=== PATIENT | female | born 1975 | race Caucasian/White ===

== ENCOUNTER 2021-02-10 03:04 | Inpatient (IN) | payer BC ==
--- NOTE | 2021-02-10 03:24 | ED ---
Fever HPI - General Chief Complaint: Fever Stated Complaint: Covid+ Time Seen by Provider: 02/10/21 03:23 Source: patient, RN notes reviewed, old records reviewed Mode of arrival: ambulatory Limitations: no limitations - History of Present Illness Initial Comments: This is a 38-year-old female who presents. Patient presents today for evaluation of known coronavirus exposure does think she has coronavirus based on symptoms diffuse body aches chest pain shortness of breath weakness fever sweating. Patient continues to feel worse here in the emergency department patient states that she is on covert for 7 days MD Complaint: fever, malaise, weakness -: days(s) Temperature Source: subjective Context: multiple patients with similar symptoms Associated Symptoms: chills, rigors, myalgias, nasal congestion, sore throat, cough, shortness of breath, nausea Treatments Prior to Arrival: none - Related Data Allergies Allergy/AdvReac Type Severity Reaction Status Date / Time No Known Allergies Allergy Verified 02/10/21 03:11 Review of Systems ROS Statement: Those systems with pertinent positive or pertinent negative responses have been documented in the HPI. ROS Other: All systems not noted in ROS Statement are negative. Past Medical History Past Medical History: No Reported History History of Any Multi-Drug Resistant Organisms: None Reported Past Surgical History: No Surgical Hx Reported Past Psychological History: Depression Smoking Status: Never smoker Past Alcohol Use History: None Reported Past Drug Use History: None Reported General Exam Limitations: no limitations General appearance: alert, in no apparent distress Head exam: Present: atraumatic, normocephalic, normal inspection Eye exam: Present: normal appearance, PERRL, EOMI. Absent: scleral icterus, conjunctival injection, periorbital swelling ENT exam: Present: normal exam, mucous membranes moist Neck exam: Present: normal inspection. Absent: tenderness, meningismus, lymphadenopathy Respiratory exam: Present: normal lung sounds bilaterally. Absent: respiratory distress, wheezes, rales, rhonchi, stridor Cardiovascular Exam: Present: regular rate, normal rhythm, normal heart sounds. Absent: systolic murmur, diastolic murmur, rubs, gallop, clicks GI/Abdominal exam: Present: soft, normal bowel sounds. Absent: distended, tenderness, guarding, rebound, rigid Extremities exam: Present: normal inspection, full ROM, normal capillary refill. Absent: tenderness, pedal edema, joint swelling, calf tenderness Back exam: Present: normal inspection Neurological exam: Present: alert, oriented X3, CN II-XII intact Psychiatric exam: Present: normal affect, normal mood Skin exam: Present: warm, dry, intact, normal color. Absent: rash Course Vital Signs 02/10/21 02/10/21 02/10/21 03:05 03:55 05:33 Temperature 100.9 F H Pulse Rate 75 68 Respiratory 20 24 18 Rate Blood Pressure 124/85 O2 Sat by Pulse 93 L 94 L Oximetry 02/10/21 06:00 Temperature 98.7 F Pulse Rate 71 Respiratory 18 Rate Blood Pressure 126/76 O2 Sat by Pulse 96 Oximetry - Reevaluation(s) Reevaluation #1: 02/10/21 07:11 Medical record is reviewed Reevaluation #2: 02/10/21 07:11 Patient symptoms are improved 02/10/21 07:12 Patient will be given antibiotic treatment Reevaluation #3: 02/10/21 07:12 Exertion outpatient significant shortness of breath and will need to be admitted Medical Decision Making - Medical Decision Making 36 female to the emergency department for evaluation of coronavirus. Patient is positive for pneumonia fever will admit for symptom control and monitoring of oxygen as she did drop her oxygen to the 80s with exertion - Lab Data Result diagrams: 02/10/21 03:49 02/10/21 03:49 Lab Results 02/10/21 02/10/21 02/10/21 Range/Units 03:11 03:49 03:49 WBC 7.3 (3.8-10.6) k/uL RBC 4.58 (3.80-5.40) m/uL Hgb 14.4 (11.4-16.0) gm/dL Hct 43.4 (34.0-46.0) % MCV 94.7 (80.0-100.0) fL MCH 31.5 (25.0-35.0) pg MCHC 33.2 (31.0-37.0) g/dL RDW 13.8 (11.5-15.5) % Plt Count 169 (150-450) k/uL MPV 7.6 Neutrophils % 75 % Lymphocytes % 22 % Monocytes % 2 % Eosinophils % 0 % Basophils % 0 % Neutrophils # 5.4 (1.3-7.7) k/uL Lymphocytes # 1.6 (1.0-4.8) k/uL Monocytes # 0.2 (0-1.0) k/uL Eosinophils # 0.0 (0-0.7) k/uL Basophils # 0.0 (0-0.2) k/uL Sodium 132 L (137-145) mmol/L Potassium 4.8 (3.5-5.1) mmol/L Chloride 100 (98-107) mmol/L Carbon Dioxide 23 (22-30) mmol/L Anion Gap 9 mmol/L BUN 23 H (7-17) mg/dL Creatinine 0.96 (0.52-1.04) mg/dL Est GFR (CKD-EPI)AfAm 81 (>60 ml/min/1.73 sqM) Est GFR (CKD-EPI)NonAf 70 (>60 ml/min/1.73 sqM) Glucose 166 H (74-99) mg/dL Calcium 9.4 (8.4-10.2) mg/dL Magnesium 2.0 (1.6-2.3) mg/dL Total Bilirubin 0.6 (0.2-1.3) mg/dL AST 43 H (14-36) U/L ALT 41 H (4-34) U/L Alkaline Phosphatase 82 (38-126) U/L Lactate Dehydrogenase 814 H (313-618) U/L C-Reactive Protein 8.5 H (<1.0) mg/dL Total Protein 7.4 (6.3-8.2) g/dL Albumin 4.0 (3.5-5.0) g/dL Coronavirus (PCR) Detected A (Not Detectd) - Radiology Data Radiology results: report reviewed (Chest x-rays positive for coronavirus with pneumonia), image reviewed Disposition Clinical Impression: Coronavirus infection, COVID-19, Pneumonia due to COVID-19 virus, Fever, Hypoxia Disposition: ADMITTED IP TO THIS HOSP Condition: Fair Is patient prescribed a controlled substance at d/c from ED?: No
[2021-02-10] MEDS ORDERED: DEXAMETHASONE SOD PHOSPHATE 10 MG/ML 1 ML VIAL IVP STA (03:27)
[2021-02-10] MEDS ORDERED: SODIUM CHLORIDE 0.9% 1,000 ML IV STA (03:27)
[2021-02-10] MEDS ORDERED: KETOROLAC 15 MG/ML 1 ML VIAL IVP STA (03:27)
[2021-02-10] MEDS ORDERED: ACETAMINOPHEN TAB 500 MG TAB PO STA (03:27)
[2021-02-10] MEDS ORDERED: ALBUTEROL HFA INHALER INHALATION STA (03:27)
[2021-02-10 03:59] LABS: Basophils % (A) 0 %; Eosinophils % (A) 0 %; HCT 43.4 % (34.0-46.0); HGB 14.4 gm/dL (11.4-16.0); Lymphocytes # (A) 1.6 k/uL (1.0-4.8); Lymphocytes % (A) 22 %; MCH 31.5 pg (25.0-35.0); MCHC 33.2 g/dL (31.0-37.0); MCV 94.7 fL (80.0-100.0); Mean Platelet Volume 7.6; Monocytes # (A) 0.2 k/uL (0-1.0); Monocytes % (A) 2 %; Neutrophils # (A) 5.4 k/uL (1.3-7.7); Neutrophils % (A) 75 %; Platelet Count 169 k/uL (150-450); RBC 4.58 m/uL (3.80-5.40); RDW 13.8 % (11.5-15.5); WBC 7.3 k/uL (3.8-10.6)
--- NOTE | 2021-02-10 04:11 | XR ---
EXAMINATION TYPE: XR chest 1V portable DATE OF EXAM: 02/10/2021 COMPARISON: NONE HISTORY: Short of breath TECHNIQUE: Single view FINDINGS: there is bilateral patchy pulmonary edema. This appears more on the right side. Heart is borderline e nlarged. There is no definite pleural effusion. Bony thorax is intact. There is no pneumothorax. IMPRESSION: Patchy pulmonary edema could relate to acute pneumonia or acute heart failure.
[2021-02-10 04:23] LABS: C Reactive Protein 8.5 mg/dL (<1.0); Calcium 9.4 mg/dL (8.4-10.2); Potassium 4.8 mmol/L (3.5-5.1); Total Bilirubin 0.6 mg/dL (0.2-1.3); Total Protein 7.4 g/dL (6.3-8.2)
[2021-02-10] MEDS ORDERED: SODIUM CHLORIDE 0.9% 50 ML IVPB ONE (04:30)
[2021-02-10] MEDS ORDERED: BAMLANIVIMAB (EUA) 700 MG, ETESEVIMAB (EUA) 1,400 MG in SODIUM CHLORIDE 0.9% 100 ML IVPB ONE (04:30)
[2021-02-10] MEDS ORDERED: MORPHINE SULFATE 4 MG/ML SYRINGE IV PRN (05:27)
[2021-02-10] MEDS ORDERED: NALOXONE 0.4 MG/ML 1 ML VIAL IV PRN (05:27)
[2021-02-10] MEDS ORDERED: ONDANSETRON 4 MG/2 ML VIAL IVP PRN (05:27)
[2021-02-10] MEDS ORDERED: IBUPROFEN 400 MG TAB PO PRN (05:27)
[2021-02-10] MEDS: SODIUM CHLORIDE 0.9% 1,000 ML IV SCH ×3 (05:56→20:26)
[2021-02-10] MEDS: DEXAMETHASONE SOD PHOSPHATE 10 MG/ML 1 ML VIAL IVP SCH (07:31)
[2021-02-10] MEDS: ENOXAPARIN 40 MG/0.4 ML SYRINGE SQ SCH (07:32)
[2021-02-10] MEDS ORDERED: REMDESIVIR 200 MG in SODIUM CHLORIDE 0.9% 250 ML IVPB ONE (09:00)
[2021-02-10] MEDS: CHOLECALCIFEROL 25 MCG (1000 IU) TABLET PO SCH (12:29)
[2021-02-10] MEDS: ASCORBIC ACID 500 MG TAB PO SCH (12:29)
[2021-02-10] MEDS: ZINC SULFATE 220 MG CAP PO SCH (12:29)
[2021-02-10] MEDS: ACETAMINOPHEN TAB 325 MG TAB PO PRN ×2 (14:18→20:27)
--- NOTE | 2021-02-10 16:49 | P.CNPUL ---
History of Present Illness Consult date: 02/10/21 Requesting physician: Fortino Ludwig Reason for consult: dyspnea, hypoxemia, abnormal CXR/CT Chief complaint: Shortness of breath, sore throat, fever History of present illness: This is a pleasant 46-year-old female patient with a known history of morbid obesity and depression. She has a 7 day history of shortness of breath, cough, congestion, sore throat, headache, backache and fevers. She's had nausea, vomiting. Loss of taste and smell. She resented here to the emergency room early this morning for the same. She did test positive for sky virus by PCR. She is not vaccinated. His x-ray reveals patchy bilateral infiltrates consistent with CoVID pneumonia. White count 7.3. Hemoglobin 14.4. Lymphocytes 22. Sodium 132. Potassium 4.8. Creatinine 0.96. Glucose 166. AST 43. ALT 41. LDH 814. C-reactive protein 8.5. She is initiated on Decadron, Lovenox, vitamin supplements. Review of Systems REVIEW OF SYSTEMS: CONSTITUTIONAL: Positive for fever Denies any recent significant weight loss or weight gain. EYES: Denies change in vision. EARS, NOSE, MOUTH, THROAT: Positive for headaches, sore throat. CARDIOVASCULAR: Denies chest pain, palpitations or syncopal episodes. RESPIRATORY: Positive for shortness of breath, cough, congestion no hemoptysis. GASTROINTESTINAL: Denies change in appetite, denies abdominal pain GENITOURINARY: Denies hematuria, denies infections. MUSKULOSKELETAL: Denies pain, denies swelling. INTEGUMENTARY: Denies rash, denies eczema. NEUROLOGICAL: Denies recent memory loss, no recent seizure activity. PSYCHIATRIC: Denies anxiety, denies depression. HEMATOLOGIC/LYMPHATIC: Denies anemia, denies enlarged lymph nodes. Past Medical History Past Medical History: No Reported History Additional Past Medical History / Comment(s): Recent lower tooth extrac tion/infection, UTIs. History of Any Multi-Drug Resistant Organisms: None Reported Past Surgical History: No Surgical Hx Reported Additional Past Surgical History / Comment(s): [place] teeth extractions Past Anesthesia/Blood Transfusion Reactions: No Reported Reaction Smoking Status: Never smoker - Past Family History Mother Family Medical History: Diabetes Mellitus, Hypertension Additional Family Medical History / Comment(s): Mother is living Father Family Medical History: Diabetes Mellitus, Hypertension, Myocardial Infarction ([place]) Additional Family Medical History / Comment(s): Father had a mi at the age of 65yrs. Medications and Allergies Home Medications Medication Instructions Recorded Confirmed Type Citalopram Hydrobromide [CeleXA] 40 mg PO HS 02/10/21 02/10/21 History HYDROcodone/APAP 5-325MG [[place] 1 tab PO Q6H PRN 02/10/21 02/10/21 History 5-325] Ibuprofen [Motrin] 800 mg PO TID PRN 02/10/21 02/10/21 History [place] Carbonate 1,200 mg PO HS 02/10/21 02/10/21 History [place] Carbonate 300 mg PO DAILY 02/10/21 02/10/21 History guaiFENesin-DM 100-10MG/5ML 10 ml PO Q6H PRN 02/10/21 02/10/21 History [Robitussin DM] Allergies Allergy/AdvReac Type Severity Reaction Status Date / Time No Known Allergies Allergy Verified 02/10/21 07:38 Physical Exam Vitals: Vital Signs Temp Pulse Pulse Resp BP BP Pulse Ox 02/10/21 14:14 99.4 F 76 18 155/86 95 02/10/21 10:30 98.7 F 80 20 150/99 95 02/10/21 07:39 18 02/10/21 07:38 18 02/10/21 06:00 98.7 F 71 18 126/76 96 02/10/21 05:33 68 18 94 L 02/10/21 03:55 24 02/10/21 03:05 100.9 F H 75 20 124/85 93 L Intake and Output 02/10/21 02/10/21 02/10/21 06:59 14:59 22:59 Other: # Voids 1 Weight 109.724 kg 109.724 kg GENERAL EXAM: Alert, pleasant 46-year-old female patient, obese, on 2 L nasal cannula, fairly comfortable in no apparent distress. HEAD: Normocephalic. EYES: Normal reaction of pupils, equal size. NOSE: Clear with pink turbinates. THROAT: No erythema or exudates. NECK: No masses, no JVD. CHEST: No chest wall deformity. LUNGS: Equal air entry with bibasilar crackles. CVS: S1 and S2 normal with no audible murmur, regular rhythm. ABDOMEN: No hepatosplenomegaly, normal bowel sounds, no guarding or rigidity. SPINE: No scoliosis or deformity SKIN: No rashes CENTRAL NERVOUS SYSTEM: No focal deficits, tone is normal in all 4 extremities. EXTREMITIES: There is no peripheral edema. No clubbing, no cyanosis. Peripheral pulses are intact. Results - Laboratory Findings CBC and BMP: 02/10/21 03:49 02/10/21 03:49 Abnormal lab findings: Abnormal Labs 02/10/21 02/10/21 03:11 03:49 Sodium 132 L BUN 23 H Glucose 166 H AST 43 H ALT 41 H Lactate Dehydrogenase 814 H C-Reactive Protein 8.5 H Coronavirus (PCR) Detected A - Diagnostic Findings Chest x-ray: image reviewed Assessment and Plan Assessment: 1 Acute hypoxemic respiratory failure secondary to COVID-19 pneumonia. Not vaccinated. Symptoms started approximately 7 days ago. Will be started on Remdesivir today 02/10/2021. New 2 Febrile illness secondary to above 3 Elevated inflammatory markers secondary to above 4 History of depression 5 Obesity with a BMI 46 kg per metered square Plan: The patient was seen and evaluated by Dr. Cedeno X-ray and labs reviewed Check a d-dimer Check a pro-calcitonin Check a BNP We will initiate Remdesivir Continue Lovenox, Decadron, vitamin supplements Titrate the FiO2 as tolerated We will continue to follow and make further recommendations based on her clinical status I, the cosigning physician, performed a history & physical examination of the patient. Lungs sounds with crackles in the bilateral bases. Maintaining good O2 saturations in the 90s on 2 L/m per nasal cannula. I discussed the assessment and plan of care with my nurse practitioner, Rosie Isaac. I attest to the above consultation as dictated by her. Time with Patient: Greater than 30
--- NOTE | 2021-02-10 23:25 | P.HPIM ---
History of Present Illness H&P Date: 02/10/21 Chief Complaint: Shortness of Breath Patient is a 46-year-old female with a known history of anxiety/depression and morbid obesity with a BMI 45.7 presents to ER with complaints of cough congestion, sore throat and fever for the past 7 days. She does have nausea and loss of taste and smell. No complaints of chest pain. No diarrhea. On admission patient was febrile with T-max 100.9 and saturating at 93% on 2 L oxygen via nasal cannula. Laboratory data showed WBC 7.3 hemoglobin 14.4 and platelets 169 lymphocytes 1.6 Sodium 132 potassium 4.8 chloride 100 BUN 23 and creatinine 0.96 AST 43 ALT 41 alk phos 82 LDH 814 and CRP 8.5 COVID-19 PCR detected. Chest x-ray showed patchy pulmonary edema could relate to acute pneumonia or acute heart failure. Review of Systems Constitutional: Patient does have fever and generalized weakness.. Abdomen: Patient does have nausea and episodes of vomiting and no abdominal pain or diarrhea. Cardiovascular: Patient denies any chest pain . + short of breath no palpitations. Respiratory: Does have cough congestion and shortness of breath. Neurologic: Patient denied any numbness or tingling headache. Musculoskeletal: Patient denies any complaints of joint swelling or deformity. Skin: Negative Psychiatric: Negative Endocrine: No heat or cold intolerance. No recent weight gain. Genitourinary: No dysuria or hematuria. All other 14 point ROS negative except the above Past Medical History Past Medical History: No Reported History Additional Past Medical History / Comment(s): Recent lower tooth extraction/in fection, UTIs. History of Any Multi-Drug Resistant Organisms: None Reported Past Surgical History: No Surgical Hx Reported Additional Past Surgical History / Comment(s): [place] teeth extractions Past Anesthesia/Blood Transfusion Reactions: No Reported Reaction Smoking Status: Never smoker - Past Family History Mother Family Medical History: Diabetes Mellitus, Hypertension Additional Family Medical History / Comment(s): Mother is living Father Family Medical History: Diabetes Mellitus, Hypertension, Myocardial Infarction ([place]) Additional Family Medical History / Comment(s): Father had a mi at the age of 65yrs. Medications and Allergies Home Medications Medication Instructions Recorded Confirmed Type Citalopram Hydrobromide [CeleXA] 40 mg PO HS 02/10/21 02/10/21 History HYDROcodone/APAP 5-325MG [[place] 1 tab PO Q6H PRN 02/10/21 02/10/21 History 5-325] Ibuprofen [Motrin] 800 mg PO TID PRN 02/10/21 02/10/21 History [place] Carbonate 1,200 mg PO HS 02/10/21 02/10/21 History [place] Carbonate 300 mg PO DAILY 02/10/21 02/10/21 History guaiFENesin-DM 100-10MG/5ML 10 ml PO Q6H PRN 02/10/21 02/10/21 History [Robitussin DM] Allergies Allergy/AdvReac Type Severity Reaction Status Date / Time No Known Allergies Allergy Verified 02/10/21 07:38 Physical Exam Vitals: Vital Signs Temp Pulse Pulse Resp BP BP Pulse Ox 02/10/21 10:30 98.7 F 80 20 150/99 95 02/10/21 07:39 18 02/10/21 07:38 18 02/10/21 06:00 98.7 F 71 18 126/76 96 02/10/21 05:33 68 18 94 L 02/10/21 03:55 24 02/10/21 03:05 100.9 F H 75 20 124/85 93 L Intake and Output 02/09/21 02/10/21 02/10/21 22:59 06:59 14:59 Other: # Voids 1 Weight 109.724 kg 109.724 kg PHYSICAL EXAMINATION: Patient is lying in the bed comfortably, no acute distress, awake alert and oriented.. HEENT: Normocephalic. Neck is supple. Pupils reactive. Nostrils clear. Oral cavity is moist. Neck reveals no JVD, carotid bruits, or thyromegaly. CHEST EXAMINATION: Trachea is central. Symmetrical expansion. Lung childress clear to auscultation and percussion. CARDIAC: Normal S1, S2 with no gallops. No murmurs ABDOMEN: Soft. Bowel sounds normal. No organomegaly. No abdominal bruits. Extremities: reveal no edema. No clubbing or cyanosis Neurologically awake, alert, oriented x3 with well-coordinated movements. No focal deficits noted Skin: No rash or skin lesions. Psychiatric: Cooperative. Nonsuicidal Musculoskeletal: No joint swelling or deformity. Normal range of motion. Results CBC & Chem 7: 02/10/21 03:49 02/10/21 03:49 Labs: Abnormal Lab Results - Last 24 Hours (Table) 02/10/21 02/10/21 Range/Units 03:11 03:49 Sodium 132 L (137-145) mmol/L BUN 23 H (7-17) mg/dL Glucose 166 H (74-99) mg/dL AST 43 H (14-36) U/L ALT 41 H (4-34) U/L Lactate Dehydrogenase 814 H (313-618) U/L C-Reactive Protein 8.5 H (<1.0) mg/dL Coronavirus (PCR) Detected A (Not Detectd) Thrombosis Risk Factor Assmnt - DVT/VTE Prophylaxis DVT/VTE Prophylaxis: Pharmacologic Prophylaxis ordered - Choose All That Apply Any of the Below Risk Factors Present?: Yes Each Factor Represents 1 point: Age 41-60 years, Obesity (BMI >25), Serious lung disease incl. pneumonia (< 1month) Other Risk Factors: No Other congenital or acquired thrombophilia - If yes, enter type in comment: No Thrombosis Risk Factor Assessment Total Risk Factor Score: 3 Thrombosis Risk Factor Assessment Level: Moderate Risk Assessment and Plan Assessment: Acute hypoxic respiratory failure secondary to COVID-19 pneumonia. Patient has been having symptoms for the past 7 days. Elevated inflammatory markers secondary to above Anxiety/depression Morbid obesity BMI 45.7 DVT prophylaxis with Lovenox subcu Plan: Patient will be continued on oxygen supplementation and continue with the dexamethasone, Lovenox and vitamin supplementation. Titrate down FiO2 as tolerated. Continue with symptomatic management for nausea and vomiting. Follow-up CBC BMP and inflammatory markers. Patient was seen by pulmonary and initiated on remdesivir course. Patient was given monoclonal antibody therapy in the ER. Continue to follow closely. Time with Patient: Greater than 30
[2021-02-11] MEDS ORDERED: LORazepam 0.5 MG TAB PO PRN (01:00)
[2021-02-11] MEDS ORDERED: LITHIUM CARBONATE 300 MG CAP PO SCH ×2 (01:00→09:00)
[2021-02-11] MEDS: SODIUM CHLORIDE 0.9% 1,000 ML IV SCH ×2 (05:56→10:11)
[2021-02-11] MEDS: ENOXAPARIN 40 MG/0.4 ML SYRINGE SQ SCH (07:52)
[2021-02-11] MEDS: ASCORBIC ACID 500 MG TAB PO SCH (07:53)
[2021-02-11] MEDS: CHOLECALCIFEROL 25 MCG (1000 IU) TABLET PO SCH (07:53)
[2021-02-11] MEDS: ZINC SULFATE 220 MG CAP PO SCH (07:53)
[2021-02-11] MEDS: DEXAMETHASONE SOD PHOSPHATE 10 MG/ML 1 ML VIAL IVP SCH (07:53)
--- NOTE | 2021-02-11 08:00 | XR ---
EXAMINATION TYPE: XR chest 1V DATE OF EXAM: 02/11/2021 COMPARISON: 02/10/2021 HISTORY: Chest pain TECHNIQUE: Single frontal view of the chest is obtained. FINDINGS: Persistent patchy perihilar and right basilar infiltrate persists without significant change. The cardiac silhouette size is within normal limits. The osseous structures are intact. IMPRESSION: 1. Persistent patchy perihilar and right basilar infiltrate persists without significant change.
[2021-02-11] MEDS ORDERED: REMDESIVIR 100 MG in SODIUM CHLORIDE 0.9% 250 ML IVPB SCH (09:00)
[2021-02-11 10:56] VITALS: RESP 16
[2021-02-11 11:04] LABS: African American GFR (CKD) 94.7 (60.0-200.0); Albumin 3.6 g/dL (3.8-4.9); Albumin/Globulin Ratio 1.34 (1.60-3.17); BUN/Creat Ratio 15.05 Ratio (12.00-20.00); Blood Urea Nitrogen 12.7 mg/dL (9.0-27.0); C Reactive Protein 11.7 mg/dL (0.00-0.80); Calcium 8.6 mg/dL (8.7-10.3); Carbon Dioxide 23.3 mmol/L (20.0-27.5); Globulin 2.7 g/dL (1.6-3.3); Non-African American GFR(CKD) 81.7 (60.0-200.0); Potassium 4.3 mmol/L (3.5-5.5); Total Bilirubin 0.4 mg/dL (0.30-1.20); Total Protein 6.3 g/dL (6.2-8.2)
[2021-02-11 11:28] LABS: Basophils # (A) 0.01 X 10*3/uL (0.00-0.10); Basophils % (A) 0.1 %; Eosinophils # (A) 0 X 10*3/uL (0.04-0.35); Eosinophils % (A) 0 %; HCT 38.3 % (37.2-46.3); HGB 12.7 g/dL (12.0-15.0); Lymphocytes # (A) 1.94 X 10*3/uL (0.90-5.00); Lymphocytes % (A) 25.6 %; MCHC 33.2 g/dL (32.0-37.0); MCV 93.4 fL (80.0-97.0); Mean Platelet Volume 9.8 fL (9.5-12.2); Monocytes # (A) 0.28 X 10*3/uL (0.20-1.00); Monocytes % (A) 3.7 %; Neutrophils # (A) 5.25 X 10*3/uL (1.80-7.70); Neutrophils % (A) 69.3 %; Platelet Count 166 X 10*3/uL (140-440); RDW 13.5 % (11.5-14.5); WBC 7.58 X 10*3/uL (4.50-10.00)
[2021-02-11 13:20] VITALS: BMI 45.7
[2021-02-11 14:30] VITALS: BP 148/78; PULSE 81; TEMP 98.5
--- NOTE | 2021-02-11 17:59 | P.PN ---
Subjective Progress Note Date: 02/11/21 Principal diagnosis: COVID-19 pneumonia This is a pleasant 46-year-old female patient with a known history of morbid obesity and depression. She has a 7 day history of shortness of breath, cough, congestion, sore throat, headache, backache and fevers. She's had nausea, vomiting. Loss of taste and smell. She resented here to the emergency room early this morning for the same. She did test positive for sky virus by PCR. She is not vaccinated. His x-ray reveals patchy bilateral infiltrates consistent with CoVID pneumonia. White count 7.3. Hemoglobin 14.4. Lymphoc ytes 22. Sodium 132. Potassium 4.8. Creatinine 0.96. Glucose 166. AST 43. ALT 41. LDH 814. C-reactive protein 8.5. She is initiated on Decadron, Lovenox, vitamin supplements. The patient is seen today 02/11/2021 in follow-up on the regular medical floor. She is currently resting comfortably in bed. Awake and alert in no acute distress. T good O2 saturations in the 90s on room air with activity. She's been afebrile. Hemodynamically stable. Follow up chest x-ray reveals persistent patchy perihilar and right basilar infiltrate without any worsening. White count 10.5. Hemoglobin 12.7. D-dimer 0.34. Sodium 135. Potassium 4.3. Creatinine 0.8. LDH 349. C-reactive protein 11.7. Pro-calcitonin 0.17. She is continued on Decadron, Lovenox, vitamin supplements. Objective - Vital Signs Vital signs: Vital Signs Temp 98.5 F 02/11/21 14:00 Pulse 81 02/11/21 14:00 Resp 16 02/11/21 14:00 BP 148/78 02/11/21 14:00 Pulse Ox 96 02/11/21 14:31 Intake & Output 02/10/21 02/11/21 02/11/21 18:59 06:59 18:59 Intake Total 1680 472 Balance 1680 472 Weight 109.724 kg 109.724 kg Intake: IV 1680 Remdesivir 100 mg In 250 Sodium Chloride 0.9% 250 ml @ 250 mls/hr IVPB DAILY [facility] Rx#:[id number] Sodium Chloride 0.9% 1, 1430 000 ml @ 130 mls/hr IV . Q7H42M [facility] Rx#:[id number] Oral 472 Other: # Voids 3 1 - Exam GENERAL EXAM: Alert, pleasant 46-year-old female patient, on room air, comfortable in no apparent distress. HEAD: Normocephalic. EYES: Normal reaction of pupils, equal size. NOSE: Clear with pink turbinates. THROAT: No erythema or exudates. NECK: No masses, no JVD. CHEST: No chest wall deformity. LUNGS: Equal air entry with coarse crackles in the bilateral bases. CVS: S1 and S2 normal with no audible murmur, regular rhythm. ABDOMEN: No hepatosplenomegaly, normal bowel sounds, no guarding or rigidity. SPINE: No scoliosis or deformity SKIN: No rashes CENTRAL NERVOUS SYSTEM: No focal deficits, tone is normal in all 4 extremities. EXTREMITIES: There is no peripheral edema. No clubbing, no cyanosis. Peripheral pulses are intact. - Labs CBC & Chem 7: 02/11/21 06:33 02/11/21 06:33 Labs: Abnormal Lab Results - Last 24 Hours (Table) 02/10/21 02/11/21 02/11/21 Range/Units 17:13 06:33 06:33 Immature Gran # 0.10 H (0.00-0.04) X 10*3/uL Eosinophils # 0 L (0.04-0.35) X 10*3/uL Glucose 162 H (70-110) mg/dL Calcium 8.6 L (8.7-10.3) mg/dL Lactate Dehydrogenase 349 H (120-246) U/L C-Reactive Protein 11.70 H (0.00-0.80) mg/dL Albumin 3.6 L (3.8-4.9) g/dL Albumin/Globulin Ratio 1.34 L (1.60-3.17) g/dL Procalcitonin 0.17 H (0.02-0.09) ng/mL Assessment and Plan Assessment: 1 Acute hypoxemic respiratory failure secondary to COVID-19 pneumonia. Not vaccinated. Symptoms started approximately 7 days ago. Will be started on Remdesivir today 02/10/2021. New 2 Febrile illness secondary to above 3 Elevated inflammatory markers secondary to above 4 History of depression 5 Obesity with a BMI 46 kg per metered square Plan: The patient was seen and evaluated Chest x-ray and labs reviewed Stable and on room air Quite adamant about going home today Complete a 10 day course of Decadron Continue vitamin supplements Follow-up closely with her PCP I, the cosigning physician, performed a history & physical examination of the patient. Lungs sounds with crackles in the bilateral bases. Maintaining good O2 saturations in the 90s on room air. I discussed the assessment and plan of care with my nurse practitioner, Rosie Isaac. I attest to the above note as dictated by her.
[2021-02-11] MEDS ORDERED: CITALOPRAM HYDROBROMIDE 20 MG TAB PO SCH (21:00)
== END 2021-02-11 17:10 | disposition home or self-care (01) | DRG 177 ==
LOC: EC 03:04 → 4SSUR 05:28
PROVIDERS: ADMIT Hospitalist; ATTEND Hospitalist
PROC: XW033E5 Introduction of Remdesivir Anti-infective into Peripheral Vein, Percutaneous Approach, New Technology Group 5 (ICD-10-PCS; principal; 2021-02-10)
DX: U07.1 COVID-19 (principal); J12.82 Pneumonia due to coronavirus disease 2019; J96.01 Acute respiratory failure with hypoxia; Z68.42 Body mass index [BMI] 45.0-49.9, adult; I50.9 Heart failure, unspecified; E66.01 Morbid (severe) obesity due to excess calories; R43.8 Other disturbances of smell and taste; F32.A Depression, unspecified; F41.9 Anxiety disorder, unspecified; Z82.49 Family history of ischemic heart disease and other diseases of the circulatory system; Z83.3 Family history of diabetes mellitus; Z87.440 Personal history of urinary (tract) infections
CPT/HCPCS: 36415; 71045; 80053; 83615; 83735; 83880; 84145; 85025; 85379; 86140; 87635; 94640; 96361; 96374; 96375; 99285